=== PATIENT | male | born 1940 | race Caucasian/White ===

== ENCOUNTER 2016-09-16 13:51 | Day surgery (SDC) | payer MEDICARE ==
[2016-09-16] VITALS (10 sets, daily range): BP systolic 114–132; BP diastolic 60–70; PULSE 60–78; RESP 2–16; O2SAT 97–98
[~2016-09-16] VITALS: Ht 180.3 cm; Wt 73.0 kg
[~2016-09-16 13:51] MED LIST: ASPI-973 PO; CALC600T12 PO; Clindamycin 600 mg/50 mL D5W IV ONE; DENO120V SUBQ; ENZA40CA PO; IBUP200C PO; KRIL1CAP19 PO; LEUP45SY IM; LISI-571 PO; Lactated Ringer's 1,000 ML IV SCH; METO50TA3 PO; MULT-1018 PO; NITR0.4T SL; ROSU40TA PO
[2016-09-16] MEDS ORDERED: Ketamine 10 mg/mL 20 mL Inj ONE (13:52)
[2016-09-16] MEDS ORDERED: fentaNYL-PF 50 mCg/mL 2 mL Inj ONE (13:52)
[2016-09-16] MEDS ORDERED: Clindamycin 600 mg/50 mL D5W Premix IV ONE (14:07)
[2016-09-16] MEDS ORDERED: Lactated Ringer's 1,000 ML IV ONE (14:15)
--- NOTE | 2016-09-16 17:14 | PCM.HPANE ---
Patient Data Surgeon Admitting Provider: Attending Provider:Pedrito Kc MD Primary Care Physician:Jonathan Griffith Other Provider:Berta Cates Anesthesia Reason for Visit Right Inguinal Hernia Ht/WT & BMI Height (Feet): 5 Height (Inches): 11 Weight (Kilograms): 73 Body Mass Index 22.00 Allergies Coded Allergies: Penicillins (Verified Allergy, Severe, 09/16/16) atorvastatin calcium (Verified Adverse Reaction, Unknown, 09/16/16) Past Anesthesia History Anesthesia History: Denies:: Abnormal Airway, Anesthesia Reactions, Difficult Intubation, Fam Anesthesia Reaction Diabetes History Hx Diabetes?: No MRSA MRSA: No Medications Blood Thinner: Aspirin Hypertension Medication: Yes Home Meds Incl Beta Mohan: Yes Date Beta Mohan Taken: Sep 16, 2016 Time Beta Mohan Taken: 829 Reported Medications Enzalutamide (Xtandi)40 Mg [id number] Mg PO DAILY 09/14/16 Denosumab (Xgeva)120 Mg/1.7 Ml Bnfc781 Mg SUBQ [id number] 09/14/16 Nitroglycerin SL (Nitrostat)0.4 Mg Tab.subl0.4 Mg SL Q5MIN PRN For Chest Pain # 1 BOTTLE 09/14/16 Multivitamin (Multi Vitamin Daily)1 Each Tablet1 Each PO DAILY 30 Days Ref 0 09/14/16 Metoprolol Tartrate 50 Mg Uxadlg23 Mg PO BID 30 Days Ref 0 09/14/16 Leuprolide Acetate (Lupron Depot)45 Mg Ontroynpkr66 Mg IM [id number] 09/14/16 Lisinopril 5 Mg Tablet5 Mg PO HS #30 TABLET Ref 0 09/14/16 Krill/Om-3/Dha/Epa/Phospho/Ast (Krill Oil 500 mg Softgel)1 Each Capsule1 Each PO DAILY 09/14/16 Rosuvastatin Calcium (Crestor)40 Mg Gixczn27 Mg PO DAILY 30 Days Ref 0 09/14/16 Calcium Carbonate (Calcium)600 Mg Zzruan815 Mg PO DAILY 09/14/16 Aspirin 81 Mg Fpapnv65 Mg PO DAILY Ref 0 09/14/16 Discontinued Reported Medications Ibuprofen 200 Mg Blqxmga250 Mg PO QID PRN For Pain Ref 0 09/14/16 Enzalutamide (Xtandi)40 Mg Abvkqaw231 Mg PO DAILY 08/19/15 Rosuvastatin Calcium (Crestor)40 Mg Huzyww83 Mg PO DAILY Ref 0 03/28/14 Metoprolol Tartrate 100 Mg Kujmbx32 Mg PO BID Ref 0 03/28/14 Lisinopril 5 Mg Tablet5 Mg PO DAILY Ref 0 03/28/14 Aspirin (Aspir 81)81 Mg Tablet.dr81 Mg PO DAILY Ref 0 03/26/14 Multivitamin (Daily Multiple Vitamin)1 Each Tablet1 Each PO DAILY 03/26/14 Krill Oil 500 Mg Capsule Mg PO DAILY 05/08/13 Glucosamine/Msm/Chondroitin A (Glucosamine Chondroit Msm Tab)1 Each Tablet1 Each PO DAILY 05/08/13 Calcium Acetate 667 Mg Jwlqzz599 Mg PO DAILY 05/08/13 History History of ENT Problems?: No HEENT History: Denies:: Abnormal Airway Cataracts Difficult Intubation Glaucoma Hearing Problem Hx of Heart Problems?: Yes Cardiovascular History: Positive for:: Cardiac Surgery (pacemaker/icd implant. ICD management Sheet here.) Congestive Heart Failure Hypertension Pacemaker Denies:: Chest Pain Edema Heart Murmur Irregular Heartbeat Thrombophlebitis Valvular Heart Disease (echo 2016- ef 35%) Hx of Respiratory Problem?: No Respiratory History: Denies:: Asthma COPD Dyspnea Emphysema Oxygen Administration Pneumonia Tuberculosis Use of C-PAP Machine Use of Inhalers / NEBS Hx Neurologic Problems?: No Neurological History: Denies:: CVA Headaches Multiple Sclerosis Parkinson's Disease Seizures Hx of GI Problems?: Yes Gastrointestinal History: Denies:: Cirrhosis Gall Bladder Disease Gastroesphageal Reflux Gastrointestinal Bleeding Heartburn Hepatitis Hiatal Hernia Liver Disease Other GI Pertinent History: right inguinal hernia current admission problem Hx of Problems?: No Genitourinary History: Denies:: Kidney Stones Urinary Tract Infection Male Hx: Positive for:: Prostate Problems (hx of prostate ca- proton tx, hormone tx) Skin History: Denies:: History Skin Disorders? Pressure Ulcers Hx Musculoskeletal Problems?: Yes Musculoskeletal History: Positive for:: Back Injury (metastatic disease to back) Denies:: Fibromyalgia Joint Replacement Musculoskeletal Trauma Osteoarthritis Rheumatoid Arthritis Hx of Psycho/Social Problems?: No Psycho Social History: Denies:: Anxiety Hx Depression Hx Surgeries?: Yes (pacemaker, right ing hernia) Hx Any Other Health Problems?: Yes Other History: Positive for:: Cancer (PROSTATE) Hospitalization (FOR [place], RADIATION THERAPY FOR PROSTATE [place]) Denies:: Endocrine Disease Thyroid Disease History Blood Transfusions: Positive for:: Accept Blood Products? Denies:: Blood Transfuse Reaction Blood Transfusions Hx Diabetes: No Hx Alcohol Use: NoHx Substance Use: No (trialed, not helpful)Have You Smoked inLast 12 mo: No Stop/Bang Treated for Sleep Apnea?: No Do You Have a CPAP Machine?: No S-Snoring: Do You Snore Loudly: No T-Tired: feel tired, fatigued: No O-Obsered: Observed not breath: No P-Blood Pressure: treated: Yes B- Body Mass Index > 35 kg/m2: No A- Age over 50: Yes N- Neck Large Circumference: No G- Gender Male: Yes CINDY Total Score: 3 CINDY Risk Assessment: High Risk, =/>3 Yes CINDY Category 4 OutPt Procedure: Yes Risk Assessment Category Category 1A: Patient has history of documented sleep apnea, and HAS NOT received any narcotic, sedative or anesthesia administration during this stay. Category 1B: Patient has history of documented sleep apnea, and HAS received any narcotic , sedative or anesthesia administration during this stay Category 2: Patient has SUSPECTED Obstructive Sleep Apnea, and HAS received any narcotic , sedative or anesthesia administration during this stay. Category 3: Patient has SUSPECTED Obstructive Sleep Apnea and HAS NOT received narcotic, sedative or anesthesia administration during this stay. Category 4: Outpatient in Procedural Areas with known sleep apnea or who screen positive for High Risk via the STOP/BANG questionnaire. Exam Exam Vital Signs Vital Signs Date Time Temp Pulse Resp B/P Pulse Ox O2 Delivery O2 Flow Rate FiO2 09/16/16 14:15 36.8 78 16 114/67 97 Room Air General Appearance: Alert, Oriented X3, Cooperative, No Acute Distress HEENT/AIRWAY: MP 2 Lungs: Clear to Auscultation, Normal Air Movement Heart: Exam Unremarkable, Regular Rate/Rhythm, No Murmurs/Rubs/Gallops Meds/Labs/Diagnostics Admission Meds Current Medications Lactated Ringer's (Lr) 1,000 ml @ ud STK-MED ONCE IV Last administered on t 14:15; Start 09/16/16 at 14:15; Stop 09/16/16 at 14:49; Status DC Plan Impression Patient chart reviewed, patient interviewed and anesthestic plan with risks, benefits, and alternatives discussed, and informed consent obtained. NPO Status: 09/16 ASA Physical Status: ASA3 Severe Disease (pacemaker, ICD, hernia) Anesthetic Plan: GA Bene/Risks/Altern/Consents: Yes HP Complete Prior to Induction: Yes Erick Gleason MD Sep 16, 2016 17:14
[2016-09-16] MEDS ORDERED: Bupivacaine-MPF 0.5% 30 mL Inj INFILTRATE ONE (18:12)
[2016-09-16] MEDS ORDERED: HYDROcodone-APAP 5-325 mg Tablet PO PRN (18:50)
[2016-09-16] MEDS ORDERED: Lactated Ringer's 1,000 ML IV SCH (18:54)
[2016-09-16] MEDS ORDERED: Lactated Ringer's 500 ML IV PRN (18:54)
[2016-09-16] MEDS ORDERED: MetoCLOpramide 5 mg/mL 2 mL Inj IVPUSH PRN (18:55)
[2016-09-16] MEDS ORDERED: fentaNYL-PF 50 mCg/mL 2 mL Inj IVPUSH PRN (18:55)
[2016-09-16] MEDS ORDERED: Dexamethasone 4 mg/mL Inj IVPUSH PRN (18:55)
[2016-09-16] MEDS ORDERED: Ondansetron 2 mg/mL 2 mL Inj IVPUSH PRN (18:55)
[2016-09-16] MEDS ORDERED: HYDROmorphone 1 mg/mL Inj IVPUSH PRN (18:55)
[2016-09-16] MEDS ORDERED: Phenylephrine 10,000 mCg/mL Inj IVPUSH PRN (18:55)
--- NOTE | 2016-09-16 19:23 | OP ---
[address] [address] OPERATIVE REPORT PATIENT: BREEZY CORTEZ : 1940 MR#: [id number] ADMIT: 09/16/2016 JOB ID: [id number] DATE OF SURGERY: 09/16/2016 SURGEON: Pedrito Kc MD [employer] REPRESENTATIVE: Michi Peck PA-C (social work assistant was required for the safe and timely completion of the case). ANESTHESIA: General. PREOPERATIVE DIAGNOSIS(ES): Right inguinal hernia. POSTOPERATIVE DIAGNOSIS(ES): Right inguinal hernia (indirect). OPERATION: Open repair of right inguinal hernia using mesh. COMPLICATIONS: None. ESTIMATED BLOOD LOSS: Minimal. CONDITION: Satisfactory. SPECIMEN: None. FINDINGS: There was a small indirect inguinal hernia which was repaired using a piece of Bard soft mesh. INDICATIONS/SIGNIFICANT HISTORY: The patient is a 75-year-old man who over the past two months has developed a progressively symptomatic right inguinal hernia. He desired elective repair. OPERATIVE TECHNIQUE: The patient was taken to the operating room and placed in supine position. General anesthesia was administered and perioperative antibiotics were given. The abdomen and groin were prepped and draped in the standard surgical fashion and a procedural pause was performed. Local anesthetic was injected. A right inguinal incision was made. Dissection carried down through the skin and subcutaneous tissue. The aponeurosis of the external oblique was opened in line with its fibers to expose the cord. The cord was circumferentially dissected free. The floor appeared intact. The cord was investigated and it was a small sac. This was dissected free from the cord and then high ligated with 3-0 Vicryl suture. A piece of soft mesh was then trimmed to the appropriate size and secured in place to reinforce the floor and to strengthen the internal ring. This was secured in place using interrupted 2-0 PDS sutures. The aponeurosis of the external oblique was then closed with running 3-0 Vicryl. Yg's was closed with interrupted 3-0, followed by running 4-0 Monocryl for the skin. Dermabond was applied. The entire procedure was well tolerated, without complication.
--- NOTE | 2016-09-16 19:42 | PCM.ANEP1 ---
Post Anesthesia Phase 1 PACU Phase 1 Assessment Vital Signs Vital Signs Date Time Temp Pulse Resp B/P Pulse Ox O2 Delivery O2 Flow Rate FiO2 09/16/16 19:30 36.3 60 2 128/67 97 Room Air 09/16/16 19:25 60 13 123/62 97 Room Air 09/16/16 19:20 60 12 122/62 97 Room Air 09/16/16 19:15 60 12 120/60 97 Room Air 09/16/16 19:10 60 13 115/62 97 Room Air 09/16/16 19:05 60 12 116/60 97 Room Air 09/16/16 19:00 60 13 115/60 98 Nasal Cannula 2 09/16/16 18:55 36.5 60 16 132/63 97 Nasal Cannula 2 09/16/16 14:15 36.8 78 16 114/67 97 Room Air Anesthetic Administered: GA Level of Alertness: Awake, talking DELUNA's with Equal Strength: Yes Pain: No Nausea or Vomiting: No Oxygen Delivery: Nasal Cannula Lungs: Clear to Auscultation, Normal Air Movement Dermatome Level: Full Sensation Erick Gleason MD Sep 16, 2016 19:42
--- NOTE | 2016-09-16 19:42 | PCM.ANEP2 ---
Post Anesthesia Evaluation ASA/CMS Post Anesthesia VS in Patient's Normal Range?: Yes Resp Stable; Airway Patent?: Yes CV Function & Hydration Stable: Yes Mental Status Recovered?: Yes Pain control Satisfactory?: Yes N/V Control Satisfactory?: Yes Erick Gleason MD Sep 16, 2016 19:42
== END 2016-09-16 23:59 | disposition home or self-care (01) ==
LOC: SAS 13:51
PROVIDERS: ATTEND General Practice
DX: K40.90 Unilateral inguinal hernia, without obstruction or gangrene, not specified as recurrent (principal); I25.10 Atherosclerotic heart disease of native coronary artery without angina pectoris; I10 Essential (primary) hypertension; E78.5 Hyperlipidemia, unspecified; I48.92 Unspecified atrial flutter; I25.2 Old myocardial infarction; Z79.82 Long term (current) use of aspirin; Z95.810 Presence of automatic (implantable) cardiac defibrillator; Z95.5 Presence of coronary angioplasty implant and graft; Z85.46 Personal history of malignant neoplasm of prostate
CPT/HCPCS: 49505; C1781; J3010; J7120